=== PATIENT | female | born 1955 | race Caucasian/White ===

== ENCOUNTER 2019-05-14 17:01 | Emergency (ER) | payer BC ==
[2019-05-14 17:31] VITALS: TEMP 97.8; BMI 23.4
[2019-05-14] MEDS ORDERED: METOCLOPRAMIDE HCL INJECTION 10 MG/2 ML VIAL IVPB ONE (18:21)
[2019-05-14] MEDS ORDERED: SODIUM CHLORIDE 0.9% 1000 ML INFUS.BAG IV ONE (18:21)
[2019-05-14] MEDS ORDERED: METOCLOPRAMIDE HCL INJECTION 10 MG/2 ML VIAL ONE (18:48)
[2019-05-14 18:54] LABS: BASO % 1.4 % (0-2.0); EOS % 0.9 % (0-4.5); HEMATOCRIT 40.2 % (32.4-45.2); HEMOGLOBIN 13.5 GM/dl (10.7-15.3); MCH 30.8 pg (25.7-33.7); MCHC 33.6 g/dl (32.0-36.0); MEAN CELL VOLUME 91.8 fl (80-96); MEAN PLT VOLUME 8.3 fl (7.5-11.1); MONO % 6.9 % (3.8-10.2); NEUT % 59.8 % (42.8-82.8); PLATELET COUNT 306 K/MM3 (134-434); RBC 4.38 M/mm3 (3.60-5.2); RDW 12.6 % (11.6-15.6); WHITE BLOOD COUNT 7.6 K/mm3 (4.0-10.8)
--- NOTE | 2019-05-14 19:02 | PDOC ---
Documentation entered by Katharine Hancock SCRIBE, acting as scribe for Oleg Hernandez MD. Oleg Hernandez MD: This documentation has been prepared by the oneidaeSanti Aiswarya, SCRIBE, under my direction and personally reviewed by me in its entirety. I confirm that the documentation accurately reflects all work, treatment, procedures, and medical decision making performed by me. History of Present Illness - General Chief Complaint: Lightheaded Stated Complaint: DIZZINESS History Source: Patient Exam Limitations: No Limitations - History of Present Illness Initial Comments: 05/14/19 19:06 The patient is a 63 year old female, with a significant PMH of anxiety, depression, migraines and HTN, who presents to the emergency department with lightheadedness that began 4 days ago. The patient states she endorses associated symptoms of slight ringing in her right ear and feeling of fullness to the right side of her head. Patient states she went to Urgent Care today and told her to report to the ER for further evaluation. The patient denies chest pain and shortness of breath. Denies fever, chills, nausea, vomit, diarrhea and constipation. Allergies: codeine Past surgical history:None reported Social history: None reported PCP: Genny Koch Past History - Past Medical History Allergies/Adverse Reactions: Allergies Allergy/AdvReac Type Severity Reaction Status Date / Time codeine Allergy Verified 05/14/19 17:19 Home Medications: Ambulatory Orders Atenolol [Tenormin -] 50 mg PO HS 05/14/19 LORazepam [Lorazepam] 1 mg PO ASDIR 05/14/19 Nefazodone HCl 200 mg PO DAILY 05/14/19 Review of Systems - Review of Systems Able to Perform ROS?: Yes Comments:: 05/14/19 17:14 ROS: A complete review of 10 out of 10 review of systems is taken and is negative apart from what is previously mentioned below and in the HPI. *Physical Exam - Vital Signs Last Vital Signs Temp Pulse Resp BP Pulse Ox 97.8 F 84 18 186/72 H 100 05/14/19 17:01 05/14/19 17:01 05/14/19 17:01 05/14/19 17:01 05/14/19 17:01 - Physical Exam Comments: 05/14/19 19:20 Vitals: Triage Vital signs reviewed General Appearance: no acute distress, well nourished well developed, Head: Atraumatic, normocephalic Chest Wall: Nontender Cardiac: Regular rate and rhythm, no murmurs, no rubs, no gallops, Lungs: Clear to auscultation bilateral, good air movement bilaterally, Skin: Warm and dry, no rashes or lesions, no petechiae Neuro: AOX3; Cranial Nerves 2-12 grossly c intact, Strength intact to all extremities, Sensation intact to all extremities, gait normal. Psych: normal mood, normal affect ED Treatment Course - LABORATORY CBC & Chemistry Diagram: 05/14/19 18:30 05/14/19 18:30 - ADDITIONAL ORDERS Additional order review: Laboratory Results 05/14/19 18:30 Urine Color Yellow Urine Appearance Clear Urine pH 5.0 Urine Protein Negative Urine Glucose (UA) Negative Urine Ketones Negative Urine Blood Negative Urine Nitrite Negative Urine Bilirubin Negative Urine Urobilinogen 0.2 Ur Leukocyte Esterase Negative 05/14/19 18:30 RBC 4.38 MCV 91.8 MCHC 33.6 RDW 12.6 MPV 8.3 Neutrophils % 59.8 Lymphocytes % 31.0 Monocytes % 6.9 Eosinophils % 0.9 Basophils % 1.4 - RADIOLOGY Radiology Studies Ordered: Category Date Time Status HEAD CT WITHOUT CONTRAST [CT] Stat CT Scan 05/14/19 18:49 Ordered Medical Decision Making - Medical Decision Making 05/14/19 18:59 63 years old with past medical history significant for hypertension on metoprolol presents to the ED with 4-day history of intermittent lightheadedness slight ringing in her right ear and feeling of fullness to the right side of her head no chest pain no shortness of breath no severe headache patient does have history of migraines In the emergency department her EKG was notable for bigeminy I was able to get in touch with her doctor's office which stated this was new. She is hemodynamically stable. Work-up in the emergency department will include blood work troponin a head CT if her work-up is completely unremarkable and patient symptomatically feels better she can follow-up with cardiology tomorrow morning Dr. Youngblood to follow-up results and reassess. Discharge - Discharge Information Problems reviewed: Yes Clinical Impression/Diagnosis: Lightheadedness, Ventricular bigeminy Condition: Stable Disposition: HOME - Follow up/Referral - Patient Discharge Instructions Patient Printed Discharge Instructions: DI for Premature Ventricular Beats Additional Instructions: Follow-up tomorrow with cardiology at [facility] as previously discussed Return to ER immediately if you have increase in lightheadedness or develop chest pain/shortness of breath - Post Discharge Activity Work/Back to School Note: Back to Work
[2019-05-14 19:13] LABS: ALBUMIN 4.3 g/dl (3.4-5.0); CALCIUM 9.5 mg/dl (8.5-10); CREATININE 0.7 mg/dl (0.55-1.3); POTASSIUM 4.3 mmol/L (3.5-5.1); TOT PROT 6.7 g/dl (6.4-8.2)
[2019-05-14 20:10] VITALS: BP 146/65; PULSE 87
--- NOTE | 2019-05-14 20:19 | PDOC ---
*Physical Exam - Vital Signs Last Vital Signs Temp Pulse Resp BP Pulse Ox 97.8 F 87 16 146/65 98 05/14/19 17:01 05/14/19 19:30 05/14/19 19:30 05/14/19 19:30 05/14/19 19:30 ED Treatment Course - LABORATORY CBC & Chemistry Diagram: 05/14/19 18:30 05/14/19 18:30 - ADDITIONAL ORDERS Additional order review: Laboratory Results 05/14/19 05/14/19 05/14/19 18:30 18:30 18:28 Sodium 140 Potassium 4.3 Chloride 106 Carbon Dioxide 26 Anion Gap 8 BUN 15.0 Creatinine 0.7 Est GFR (CKD-EPI)AfAm 107.62 Est GFR (CKD-EPI)NonAf 92.86 Random Glucose 100 Calcium 9.5 Total Bilirubin 1.0 AST 17 ALT 14 Alkaline Phosphatase 53 Troponin I < 0.03 Total Protein 6.7 Albumin 4.3 Urine Color Yellow Urine Appearance Clear Urine pH 5.0 Urine Protein Negative Urine Glucose (UA) Negative Urine Ketones Negative Urine Blood Negative Urine Nitrite Negative Urine Bilirubin Negative Urine Urobilinogen 0.2 Ur Leukocyte Esterase Negative 05/14/19 18:30 RBC 4.38 MCV 91.8 MCHC 33.6 RDW 12.6 MPV 8.3 Neutrophils % 59.8 Lymphocytes % 31.0 Monocytes % 6.9 Eosinophils % 0.9 Basophils % 1.4 - Medications Given in the ED: ED Medications Discontinued Medications Generic Name Dose Route Start Last Admin Trade Name Freq PRN Reason Stop Dose Admin Diphenhydramine HCl 25 mg 05/14/19 18:49 05/14/19 18:55 Benadryl Injection - IVPB 05/14/19 18:50 25 mg ONCE ONE Administration Metoclopramide HCl 10 mg 05/14/19 18:21 05/14/19 19:01 Reglan Injection - IVPB 05/14/19 18:22 10 mg ONCE ONE Administration Sodium Chloride 1,000 ml 05/14/19 18:21 05/14/19 19:00 Normal Saline - IV 05/14/19 18:22 1,000 ml ONCE ONE Administration ED Progress Note - Progress Note Progress Note: Care of this patient received from Dr. Hernandez. Patient presents with lightheadedness for a few days and is found to have ventricular bigeminy on EKG tracing today. No previous history of this arrhythmia. Laboratory evaluation including chemistry profile/troponin/CBC are all normal with non-elevated troponin. Noncontrast head CT: Interpretation by Dr. Posada of the radiology staff-no evidence of acute intracranial pathology or fracture. Results discussed with the patient and her . Patient is comfortable without significant symptoms at this time. She is primarily followed at [facility]; she can be seen by cardiology staff tomorrow. Patient prefers following up with her primary medical group. Patient will be discharged with copies of results of her evaluation. She should return to the emergency room immediately if she has more severe lightheadedness or develops chest pain/shortness of breath Discharge - Discharge Information Problems reviewed: Yes Clinical Impression/Diagnosis: Lightheadedness, Ventricular bigeminy Condition: Stable Disposition: HOME - Follow up/Referral - Patient Discharge Instructions Patient Printed Discharge Instructions: DI for Premature Ventricular Beats Additional Instructions: Follow-up tomorrow with cardiology at [facility] as previously discussed Return to ER immediately if you have increase in lightheadedness or develop chest pain/shortness of breath - Post Discharge Activity Work/Back to School Note: Back to Work
--- NOTE | 2019-05-15 13:35 | EKG ---
Test Reason : Blood Pressure : / mmHG Vent. Rate : 094 BPM Atrial Rate : 094 BPM P-R Int : 138 ms QRS Dur : 082 ms QT Int : 374 ms P-R-T Axes : 074 014 029 degrees QTc Int : 467 ms SINUS RHYTHM WITH FREQUENT PREMATURE VENTRICULAR COMPLEXES IN A PATTERN OF BIGEMINY POSSIBLE LEFT ATRIAL ENLARGEMENT SEPTAL INFARCT , AGE UNDETERMINED ABNORMAL ECG NO PREVIOUS ECGS AVAILABLE Confirmed by MD SERGEI, BETTY ([id number]) on 05/15/2019 1:35:13 PM Referred By: Confirmed By:BETTY MAI MD
== END 2019-05-14 20:26 | disposition home or self-care (01) ==
LOC: FER 17:01
PROC: 3E033GC Introduction of Other Therapeutic Substance into Peripheral Vein, Percutaneous Approach (ICD-10-PCS; principal; 2019-05-14)
PROC: 3E0337Z Introduction of Electrolytic and Water Balance Substance into Peripheral Vein, Percutaneous Approach (ICD-10-PCS; 2019-05-14)
DX: R42 Dizziness and giddiness (principal); R00.8 Other abnormalities of heart beat; I10 Essential (primary) hypertension; F41.9 Anxiety disorder, unspecified; F32.9 Major depressive disorder, single episode, unspecified; Z88.5 Allergy status to narcotic agent
CPT/HCPCS: 36415; 70450-TC; 80053; 81003; 84484; 85025; 93005; 99284-25; J7030